=== PATIENT | female | born 1965 | race Caucasian/White ===

== ENCOUNTER 2021-05-28 20:31 | Emergency (ER) | payer BC ==
[~2021-05-28] VITALS: Ht 162.6 cm; Wt 58.1 kg
[2021-05-28] MEDS ORDERED: HYDROCHLOROTHIA25 M1 PO (20:43)
[2021-05-28] MEDS ORDERED: COZAAR 25 MG TA25 M1 PO (20:43)
[2021-05-28 22:05] VITALS: BP 121/84
[2021-05-29] MEDS ORDERED: PREDNISONE 20 M20 MG PO (18:24)
== END 2021-05-28 22:07 | disposition home or self-care (01) ==
LOC: ER 20:31
DX: T36.0X5A Adverse effect of penicillins, initial encounter (principal); R21 Rash and other nonspecific skin eruption; Z79.899 Other long term (current) drug therapy; Z88.1 Allergy status to other antibiotic agents; Z88.5 Allergy status to narcotic agent; Y92.89 Other specified places as the place of occurrence of the external cause

== ENCOUNTER 2021-05-29 16:47 | Emergency (ER) | payer BC ==
[~2021-05-29] VITALS: Ht 162.6 cm; Wt 58.1 kg
[~2021-05-29 16:47] MED LIST: COZAAR 25 MG TA25 M1 PO; HYDROCHLOROTHIA25 M1 PO
[2021-05-29 16:49] VITALS: BP 108/72
[2021-05-29] MEDS ORDERED: PREDNISONE 20 M20 MG PO (18:24)
== END 2021-05-29 18:56 | disposition home or self-care (01) ==
LOC: ER 16:47
DX: L50.8 Other urticaria (principal); T49.0X5A Adverse effect of local antifungal, anti-infective and anti-inflammatory drugs, initial encounter; Z79.899 Other long term (current) drug therapy; Z88.1 Allergy status to other antibiotic agents; Z88.6 Allergy status to analgesic agent; Y92.098 Other place in other non-institutional residence as the place of occurrence of the external cause